=== PATIENT | male | born 1960 | race Caucasian/White ===

== ENCOUNTER 2024-10-21 03:44 | Emergency (ER) | payer OTHER, SELFPAY ==
[2024-10-21 03:46] VITALS: BP 198/106
--- NOTE | 2024-10-21 04:38 | ED.GENMED ---
History of Present Illness
<CHIDI Chung - Last Filed: 10/21/24 04:49>
General
Chief Complaint: Back Pain
Source: patient
Time Seen by Provider: 10/21/24 04:34
Nursing documentation reviewed up to this point in time: agreed with
History of Present Illness
History of Present Illness:
Pt is a 63 yo M who presents to the ED for lower back pain since 8pm. Pt states that he was hanging lights outside and did a twisting motion of his back to flip a tarp and states that is when the pain began. Pt reports that the pain is sharp and
stabbing, 10/15, constant, and it is located in his lower middle back. He reports that the pain is on both sides of his lower back and that it is worse on his left side. Pt states that he has had back problems previously and saw a chiropractor
before and that his back was doing better before this incident tonight. Pt states that he took Advil and 2 muscle relaxers tonight without relief. Pt states that he was dry heaving due to the pain. Pt denies changes in his bowel or bladder function,
numbness or weakness in lower extremities, shortness of breath, vomiting.
Review of Systems
<CHIDI Chung - Last Filed: 10/21/24 04:49>
Review of Systems
Allergies reviewed?: Yes
Constitutional: Reports no symptoms
Cardiac: Reports no symptoms
ABD/GI: Reports no symptoms
Musculoskeletal: Reports back pain
Neurological: Reports no symptoms
Phy Exam
<CHIDI Chung - Last Filed: 10/21/24 04:49>
General Physical Exam
General Presentation: severe distress
General age: appears stated age
General Skin: warm
General Habitus: normal
General Mental: alert
Cardiovascular Exam
Cardiovascular Exam: regular rate/rhythm
Pulmonary Exam
Pulmonary Exam: lungs clear
Musculoskeletal Exam
Musculoskeletal Exam: back pain
Course
<ST JulietPA - Last Filed: 10/21/24 04:49>
Orders/Labs/Results
Orders:
Orders
10/21/24 05:09
Diazepam [Valium] 5 mg .ROUTE .STK-MED ONE
Oxycodone/Acetaminophen [Percocet 5/325] 1 tablet .ROUTE .STK-MED ONE
10/21/24 05:10
Diazepam [Valium] 5 mg PO NOW STA
Oxycodone/Acetaminophen [Percocet 5/325] 1 tablet PO NOW STA
10/21/24 05:46
Ketorolac [Toradol] 30 mg .ROUTE .STK-MED ONE
Ketorolac [Toradol] 30 mg IM NOW STA
10/21/24 06:19
HYDROmorphone [Dilaudid] 1 mg IM NOW STA
10/21/24 06:32
Lumbar Spine Complete, 4 View [CR Lumbar Spine Comp Min 4 Vw*] Urgent
Comment:
Reason For Exam: low back pain
Vital Signs
Initial and Last Documented VS:
Initial Vital Signs
Temp Pulse Resp BP Pulse Ox
36.6 C 80 26 198/106 98
10/21/24 03:46 10/21/24 03:46 10/21/24 03:46 10/21/24 03:46 10/21/24 03:46
Last Documented Vital Signs
Temp Pulse Resp BP Pulse Ox
36.6 C 80 26 198/106 98
10/21/24 03:46 10/21/24 03:46 10/21/24 03:46 10/21/24 03:46 10/21/24 03:46
<Napoleon Adamson DO - Last Filed: 10/21/24 05:33>
Orders/Labs/Results
Orders:
Orders
10/21/24 05:09
Diazepam [Valium] 5 mg .ROUTE .STK-MED ONE
Oxycodone/Acetaminophen [Percocet 5/325] 1 tablet .ROUTE .STK-MED ONE
10/21/24 05:10
Diazepam [Valium] 5 mg PO NOW STA
Oxycodone/Acetaminophen [Percocet 5/325] 1 tablet PO NOW STA
10/21/24 05:46
Ketorolac [Toradol] 30 mg .ROUTE .STK-MED ONE
Ketorolac [Toradol] 30 mg IM NOW STA
10/21/24 06:19
HYDROmorphone [Dilaudid] 1 mg IM NOW STA
10/21/24 06:32
Lumbar Spine Complete, 4 View [CR Lumbar Spine Comp Min 4 Vw*] Urgent
Comment:
Reason For Exam: low back pain
Vital Signs
Initial and Last Documented VS:
Initial Vital Signs
Temp Pulse Resp BP Pulse Ox
36.6 C 80 26 198/106 98
10/21/24 03:46 10/21/24 03:46 10/21/24 03:46 10/21/24 03:46 10/21/24 03:46
Last Documented Vital Signs
Temp Pulse Resp BP Pulse Ox
36.6 C 80 26 198/106 98
10/21/24 03:46 10/21/24 03:46 10/21/24 03:46 10/21/24 03:46 10/21/24 03:46
<Ángel Lindsay, - Last Filed: 10/21/24 08:41>
Orders/Labs/Results
Orders:
Orders
10/21/24 05:09
Diazepam [Valium] 5 mg .ROUTE .STK-MED ONE
Oxycodone/Acetaminophen [Percocet 5/325] 1 tablet .ROUTE .STK-MED ONE
10/21/24 05:10
Diazepam [Valium] 5 mg PO NOW STA
Oxycodone/Acetaminophen [Percocet 5/325] 1 tablet PO NOW STA
10/21/24 05:46
Ketorolac [Toradol] 30 mg .ROUTE .STK-MED ONE
Ketorolac [Toradol] 30 mg IM NOW STA
10/21/24 06:19
HYDROmorphone [Dilaudid] 1 mg IM NOW STA
10/21/24 06:32
Lumbar Spine Complete, 4 View [CR Lumbar Spine Comp Min 4 Vw*] Urgent
Comment:
Reason For Exam: low back pain
Vital Signs
Initial and Last Documented VS:
Initial Vital Signs
Temp Pulse Resp BP Pulse Ox
36.6 C 80 26 198/106 98
10/21/24 03:46 10/21/24 03:46 10/21/24 03:46 10/21/24 03:46 10/21/24 03:46
Last Documented Vital Signs
Temp Pulse Resp BP Pulse Ox
36.6 C 80 26 198/106 98
10/21/24 03:46 10/21/24 03:46 10/21/24 03:46 10/21/24 03:46 10/21/24 03:46
<CHIDI Chung - Last Filed: 10/21/24 04:49>
MDM/Problems Addressed
Differential Diagnosis Includes:
Lower back muscle strain, herniated disc
<CHIDI Chung - Last Filed: 10/21/24 04:49>
*Critical Care Note
Total Time (30-74mins, 75-104mins- exclusive of procedures): Not Applicable
<Ángel Lindsay DO - Last Filed: 10/21/24 08:41>
Update Note
Update Note:
I evaluated the patient at bedside. Overall he feels improved compared to when he came in. Will give short course of narcotic analgesia. He will also continue NSAIDs. His strength in the lower extremities is excellent prior to discharge.
ED Attending Note
<CHIDI Chung - Last Filed: 10/21/24 04:49>
-
Portions of this chart may have been created with voice recognition software.� Occasional wrong word or��sound alike� substitutions may have occurred due to the inherent limitations of voice recognition software.
<aNpoleon Adamson DO - Last Filed: 10/21/24 05:33>
ED Attending Note
Patient seen and examined by attending physician: Yes
I performed the substantive portion of visit, reviewed & personally made and approve the management plan that is documented in note by myself or HAI.: Yes
ED Attending Note:
Pleasant 63-year-old male presents to the emergency department for low back pain. Patient has been suffering low back pain for months. Has been treated by chiropractic and been on different types of medications. He states that the pain waxes and
wanes. It has been in remission for several weeks. Tonight he was working on a project outside when he opened up a tarp causing back spasms. Patient denies bowel or bladder retention or incontinence. He denies any perianal anesthesia. He does
report some difficulty walking but is able to ambulate without issue. Patient tried Advil and muscle relaxers without relief. Denies fever, chills, chest pain, or shortness of breath. Patient was seen in conjunction with the PA student. I have
reviewed and agree with the history and treatment plan presented. On my independent physical exam, patient is awake, alert, and oriented x3, moderate acute distress. Heart is regular rate rhythm. Lungs are clear to auscultation bilaterally
without wheezes rales or rhonchi present. Abdomen is soft nontender. No hepatosplenomegaly.
Discharge Plan
Departure
Referrals:
Adarsh Nelson MD [Family Provider] -
Interventions
Interventions:
*Risk Screen - Suicide Last Done: 10/21/24 03:46
*General Assessment Last Done: 10/21/24 05:50
*Neglect/Abuse Screening Last Done: 10/21/24 03:46
ED- Fall Risk Assessment Last Done: 10/21/24 05:50
*ED COVID-19 Vaccine History Last Done: 10/21/24 05:50
ED-Musculoskeletal Assessment Last Done: 10/21/24 05:50
Discharge Date and Time
Print Language: BELIZEAN
[2024-10-21] MEDS: VALIUM 5 MG PO (05:10)
[2024-10-21] MEDS: PERCOCET 5/325 1 TABLET PO (05:10)
[2024-10-21] MEDS: TORADOL 30 MG IM (05:47)
[2024-10-21] MEDS: DILAUDID 1 MG IM (06:39)
--- NOTE | 2024-10-21 06:42 | EDRN ---
Patient was still having pain so he was medicated for pain.
[2024-10-21 08:23] VITALS: BP 150/98
== END 2024-10-21 09:00 | disposition home or self-care (01) ==
LOC: EMR 03:44
PROVIDERS: EMERGENCY PHYSICIAN Student in an Organized Health Care Education/Training Program; FAMILY PHYSICIAN Internal Medicine
DX: M54.50 Low back pain, unspecified (principal)
CPT/HCPCS: 99283; 72110